=== PATIENT | male | born 2000 | race Caucasian/White ===

== ENCOUNTER 2024-02-21 21:13 | Emergency (ER) | payer BC, SELFPAY ==
[2024-02-21 21:19] VITALS: BP 135/78; PULSE 92; TEMP 36.8; O2SAT 98; BMI 26.6
--- NOTE | 2024-02-21 21:22 | ED_ITS ---
HPI - URI/Sore Throat General Chief Complaint: Upper Respiratory Infection Stated Complaint: POSS COVID Time Seen by Provider: 02/21/24 21:15 History of Present Illness HPI Narrative: 23 year old male presents to the ED for sinus congestion/drainage, cough. Onset was 2-3 days ago. Denies fever, chills, SOB, N/V/D. His son has Covid-19. Related Data Allergies Allergy/AdvReac Type Severity Reaction Status Date / Time No Known Drug Allergies Allergy Verified 02/21/24 21:23 Review of Systems ROS Constitutional Denies: fever or chills Ears, nose, mouth, and throat Reports: nasal discharge and nasal congestion; Denies: throat pain, neck pain, ear pain or ear discharge Cardiovascular Denies: chest pain Respiratory Reports: cough; Denies: shortness of breath Gastrointestinal Denies: abdominal pain, nausea, vomiting or diarrhea Integumentary/Breast Denies: rash Neurological Denies: headache Exam Constitutional Vital Signs, click to edit/add: Last Vital Signs Temp 98.2 F 02/21/24 21:19 Pulse 92 H 02/21/24 21:19 Resp 16 02/21/24 21:19 BP 135/78 02/21/24 21:19 Pulse Ox 98 02/21/24 21:19 O2 Del Method Room Air 02/21/24 21:19 Common normals: no apparent distress and oriented x3 General appearance: cooperative HENMT Face and sinus: normal facial exam Nose: nasal discharge External ear: external ears normal Mouth: oral and palatal mucosa normal, lip normal and tongue normal Throat: posterior oropharynx normal Eye Common normals: conjunctivae normal and no scleral icterus Neck & C-Spine Common normals: supple Chest Chest: symmetrical chest wall rise Respiratory Common normals: normal respiratory effort and clear to auscultation bilaterally Effort & inspection: able to speak in complete sentences Cardio Common normals: regular rate and regular rhythm Neuro Common normals: oriented x3 Sensorium/orientation: awake and alert Speech: speech normal Course Vital Signs Vital signs: Vital Signs Temperature 98.2 F 02/21/24 21:19 Pulse Rate 92 H 02/21/24 21:19 Respiratory Rate 16 02/21/24 21:19 Blood Pressure 135/78 02/21/24 21:19 Pulse Oximetry 98 02/21/24 21:19 Oxygen Delivery Method Room Air 02/21/24 21:19 Temperature 98.2 F 02/21/24 21:19 Pulse Rate 92 H 02/21/24 21:19 Respiratory Rate 16 02/21/24 21:19 Blood Pressure 135/78 02/21/24 21:19 Pulse Oximetry 98 02/21/24 21:19 Oxygen Delivery Method Room Air 02/21/24 21:19 MDM - URI/Sore Throat MDM Narrative Medical decision making narrative: Covid-19 was positive. Findings were discussed. Follow up with pcp for a recheck, further evaluation and treatment. Symptom treatment was discussed. Return precautions were discussed. Differential Diagnosis Differential diagnosis: Likely viral infection and other (Covid-19) Medical Records Attestation: I reviewed the patient's medical records. Lab Data Attestation: I reviewed the patient's lab results. Labs: Lab Results 02/21/24 Range/Units 21:26 SARS-CoV-2 Ag (CV2AG) Positive A (NEGATIVE) Discharge Plan Discharge Chief Complaint: Upper Respiratory Infection Clinical Impression: COVID-19 Patient Disposition: Home, Self-Care Time of Disposition Decision: 21:49 Condition: Good Mode of Transportation: Private Vehicle Print Language: Faroese Instructions: COVID-19 (Coronavirus Disease 2019) (ED), Safely Care for Someone Who Has COVID-19 (ED), How to Recover from COVID-19 at Home (ED) Referrals: Physician,Non-Staff, MD [Primary Care Provider] - 1 week
[2024-02-21 21:48] LABS: Internal Control Within Normal Limits
[2024-02-21 21:50] LABS: SARS-CoV-2 Ag POSITIVE (NEGATIVE)
== END 2024-02-21 22:06 | disposition home or self-care (01) ==
PROVIDERS: Nurse Practitioner Family; Emergency Provider Emergency Medicine
DX: U07.1 COVID-19 (principal)
CPT/HCPCS: 87811; 99283